=== PATIENT | male | born 1965 | race Caucasian/White ===

== ENCOUNTER → 2023-10-18 13:23 | Outpatient (CLI) | payer OTHER, SELFPAY ==
--- NOTE | 2023-10-18 13:27 | DI.MRI.S_ITS ---
PROCEDURE: MR CERVICAL SPINE WO CON INDICATIONS: Cervicalgia TECHNIQUE: Noncontrast sagittal T1 spin echo and T2 fast spin echo, sagittal STIR, foraminal oblique sagittal T2 fast spin echo, and axial gradient echo or T2 fast spin echo through the cervical spine. COMPARISON: None. FINDINGS: Image quality: Excellent. Alignment and Curvature: There is normal bony alignment. Bone Marrow: Marrow demonstrates normal overall signal. Spinal Cord: Visualized spinal cord has normal size and signal. No cerebellar tonsillar herniation. Paraspinous Soft Tissues: No paravertebral masses. Prevertebral soft tissues are normal in thickness. C2-C3: No canal stenosis. Left uncovertebral joint hypertrophy and left facet hypertrophy results in severe foraminal narrowing with left foraminal C3 nerve root impingement. C3-C4: No canal stenosis. AP diameter of the central canal measures 13.4 mm. Mild bilateral foraminal stenosis. C4-C5: No canal stenosis. AP diameter of the central canal measures 11.3 mm. Mild bilateral facet hypertrophy. Moderate left foraminal narrowing. C5-C6: Chronic disc height loss. Posterior disc bulge. Moderate canal stenosis. AP diameter of the central canal is 8.4 mm. There is right lateral recess mild disc protrusion which impinges on the ventral horn of the exiting right C6 nerve root. There is moderate bilateral foraminal narrowing. C6-C7: No central canal stenosis. AP diameter of the central canal is 11.3 mm. There is a right lateral recess disc protrusion which obliterates the ventral horn of the exiting right C7 nerve root in the right lateral recess. Reference axial T2 image 37 of series 4. There is left uncovertebral joint hypertrophy. There is moderate bilateral foraminal narrowing. C7-T1: No canal stenosis or foraminal stenosis. IMPRESSION: 1. Multilevel cervical spondylosis as described above. 2. At C5-C6, there is moderate central canal stenosis. Additionally, a right lateral recess disc protrusion impinges on the ventral horn of the exiting right C6 nerve root. 3. At C6-C7, there is a right lateral recess disc protrusion which obliterates the ventral horn of the exiting right C7 nerve root in the right lateral recess. 4. Multilevel foraminal narrowing as described above. Findings include severe left foraminal narrowing at C2-C3 with foraminal nerve root impingement. There is moderate left foraminal narrowing at C4-C5, moderate bilateral foraminal narrowing at C5-C6, and moderate bilateral foraminal narrowing at C6-C7. Dictated by: Ronald Adam M.D. on 10/18/2023 at 21:34 Approved by: Ronald Adam M.D. on 10/18/2023 at 21:46
== END ==
LOC: MRI 13:26
PROVIDERS: Referring Provider Family Medicine; Visit Provider Family Medicine
DX: M47.812 Spondylosis without myelopathy or radiculopathy, cervical region (principal); M50.222 Other cervical disc displacement at C5-C6 level; M48.02 Spinal stenosis, cervical region; R20.0 Anesthesia of skin
CPT/HCPCS: 72141